=== PATIENT | male | born 1980 | race Two or more races ===

== ENCOUNTER 2017-09-21 10:09 | Outpatient (CLI) | payer BC ==
--- NOTE | 2017-09-21 14:27 | Diagnostic Imaging Report ---
Indication: COUGH Technique: 2 views of the chest Comparison: none. Findings: Lungs and pleural spaces are clear. Heart size is normal. Bones are unremarkable.. Impression: No acute process
== END 2017-09-21 12:09 | disposition home or self-care (01) ==
LOC: RAD 10:09
DX: R05 Cough (principal)
CPT/HCPCS: 71020